=== PATIENT | male | born 1970 | race Caucasian/White ===

== ENCOUNTER → 2016-12-09 | Emergency (ER) | payer SELFPAY ==
[~2016-12-09] VITALS: Ht 193 cm; Wt 85.7 kg
[~2016-12-09] MED LIST: ACETAMINOPHEN-1 EAC1 ORAL; AZITHROMYCIN250 MG ORAL; VENTOLIN HFA18 GM INH
[2016-12-09 11:42] VITALS: BP 127/79
--- NOTE | 2016-12-10 13:26 | Emergency Room Report ---
History of Present Illness General Chief Complaint: Upper Respiratory Illness Source: Patient Present Illness HPI 46 YOM with 1 month intermittent productive cough. Denies chest pain, SOB, abd pain, fever/chills, sick contacts. Denies smoking, asthma, COPD. Allergies: Coded Allergies: No Known Allergies (Unverified , 12/09/16) Patient History Past Medical History: none Past Surgical History: none Pertinent Family History: none Social History: Denies: alcohol use, drug use, smoking Immunizations: UTD Reviewed Nursing Documentation: PMH: Agreed, PSxH: Agreed Nursing Documentation-PMH Past Medical History: No History, Except For History Of Psychiatric Problem: Yes - anxiety, insomnia Review of Systems All Other Systems: negative except mentioned in HPI Physical Exam Vital Signs Date Time Temp Pulse Resp B/P Pulse Ox O2 Delivery O2 Flow Rate FiO2 12/09/16 10:50 98.1 94 20 127/84 96 Room Air Sp02 EP Interpretation: reviewed, normal General Appearance: normal inspection, well appearing, no apparent distress, alert, GCS 15, non-toxic, other - Looks comfortably, listening to music on iphone in stretcher Head: normocephalic, atraumatic Eyes: bilateral eye EOMI, bilateral eye PERRL ENT: normal ENT inspection, hearing grossly normal, normal voice Neck: normal inspection, full range of motion, supple, no bony tend Respiratory: normal inspection, lungs clear, normal breath sounds, no respiratory distress, no retraction, no accessory muscle use, no wheezing Cardiovascular #1: regular rate, rhythm, no edema Gastrointestinal: normal inspection, normal bowel sounds, non tender, soft, no guarding, no hernia Genitourinary: no CVA tenderness Musculoskeletal: normal inspection, back normal, normal range of motion, Tavia' s Sign negative Neurologic: normal inspection, alert, oriented x3, responsive, customs collector III-XII nml as tested, motor strength/tone normal, speech normal Psychiatric: normal inspection, judgement/insight normal, mood/affect normal Skin: normal inspection Lymphatic: normal inspection Medical Decision Making Diagnostic Impression: Primary Impression: Community acquired pneumonia ER Course 46 YOM with cough for 1 month. VSS. Afebrile. Given symptoms for one month, will tx empirically for CAP with Zpack Supportive Tx meds as well PMD followup as needed DC home Last Vital Signs Date Time Temp Pulse Resp B/P Pulse Ox O2 Delivery O2 Flow Rate FiO2 12/09/16 11:42 87 18 127/79 100 Room Air 12/09/16 11:07 97.1 Status: improved Disposition: HOME, SELF-CARE Condition: Improved Scripts Albuterol Sulfate (VENTOLIN HFA) 18 Gm Hfa.aer.ad 1 PUFF INH EVERY 6 HOURS for For Cough, #18 GM 0 Refills Prov: PRUDENCE COVARRUBIAS M.D. 12/09/16 Acetaminophen With Codeine (T#3) (TYLENOL #3 TAB*) Y Tab 1 TAB ORAL QHS Y for For Cough for 7 Days, #20 TAB Prov: PRUDENCE COVARRUBIAS M.D. 12/09/16 Azithromycin* (ZITHROMAX*) 250 Mg Tablet 250 MG ORAL DAILY for 4 Days, TAB 0 Refills Prov: PRUDENCE COVARRUBIAS M.D. 12/09/16 Azithromycin* (ZITHROMAX*) 250 Mg Tablet 500 MG ORAL ONCE for 1 Day, TAB 0 Refills Prov: PRUDENCE COVARRUBIAS M.D. 12/09/16 Referrals: NON PHYSICIAN (PCP) Patient Instructions: Upper Respiratory Infection, Adult Additional Instructions: - Take all antibiotics as prescribed - Cough: Use ventolin durign the day and T#3 at night - Follow up with your doctor in 1 week as needed PRUDENCE COVARRUBIAS M.D. Dec 10, 2016 13:26
== END | disposition home or self-care (01) ==
LOC: EMR 11:30
DX: J18.9 Pneumonia, unspecified organism (principal); F41.9 Anxiety disorder, unspecified; G47.00 Insomnia, unspecified
CPT/HCPCS: 99284